=== PATIENT | male | born 1990 | race Caucasian/White ===

== ENCOUNTER 2021-12-21 08:15 | Outpatient (CLI) | payer MEDICARE, MEDICAID | END 2021-12-21 08:16 | disposition home or self-care (01) | LOC: CSHWCC 08:15 | PROVIDERS: ATTEND Nurse Practitioner Family | DX: L89.154 Pressure ulcer of sacral region, stage 4 (principal); L89.153 Pressure ulcer of sacral region, stage 3 | CPT/HCPCS: 97139; G0463; 99213 ==

== ENCOUNTER 2022-08-23 14:37 | Outpatient (CLI) | payer MEDICARE, MEDICAID | END 2022-08-23 14:38 | disposition home or self-care (01) | LOC: CSHWCC 14:37 | PROVIDERS: ATTEND Nurse Practitioner Family | DX: L89.153 Pressure ulcer of sacral region, stage 3 (principal) | CPT/HCPCS: 97139; 97607; G0463; 99212 ==

== ENCOUNTER 2022-10-03 14:59 | Outpatient (CLI) | payer MEDICARE, MEDICAID | END 2022-10-03 15:00 | disposition home or self-care (01) | LOC: CSHWCC 14:59 | PROVIDERS: ATTEND Nurse Practitioner Family | DX: L89.153 Pressure ulcer of sacral region, stage 3 (principal) | CPT/HCPCS: 97607 ==

== ENCOUNTER 2022-10-12 14:53 | Outpatient (CLI) | payer MEDICARE, MEDICAID | END 2022-10-12 14:54 | disposition home or self-care (01) | LOC: CSHWCC 14:53 | PROVIDERS: ATTEND Nurse Practitioner Family | DX: L89.153 Pressure ulcer of sacral region, stage 3 (principal) ==

== ENCOUNTER 2022-11-22 15:06 | Outpatient (CLI) | payer MEDICARE, MEDICAID | END 2022-11-22 15:07 | disposition home or self-care (01) | LOC: CSHWCC 15:06 | PROVIDERS: ATTEND Nurse Practitioner Family | DX: L89.153 Pressure ulcer of sacral region, stage 3 (principal) | CPT/HCPCS: 97139; G0463; 99213 ==

== ENCOUNTER 2022-12-06 10:21 | Outpatient (CLI) | payer MEDICARE, MEDICAID | END 2022-12-06 10:22 | disposition home or self-care (01) | LOC: CSHWCC 10:21 | PROVIDERS: ATTEND Nurse Practitioner Family | DX: L89.153 Pressure ulcer of sacral region, stage 3 (principal) | CPT/HCPCS: 97139; G0463; 99213 ==

== ENCOUNTER 2022-12-07 16:42 | Emergency (ER) | payer MEDICARE, MEDICAID | END 2022-12-07 17:55 | disposition home or self-care (01) | LOC: CSHERS 16:42 | DX: L03.116 Cellulitis of left lower limb (principal); F17.210 Nicotine dependence, cigarettes, uncomplicated | CPT/HCPCS: 99283 ==

== ENCOUNTER 2023-01-22 10:00 | Outpatient (CLI) | payer MEDICARE, MEDICAID | END 2023-01-22 10:01 | disposition home or self-care (01) | LOC: CSHWCC 10:00 | PROVIDERS: ATTEND Nurse Practitioner Family | DX: L89.153 Pressure ulcer of sacral region, stage 3 (principal); T81.89XD Other complications of procedures, not elsewhere classified, subsequent encounter | CPT/HCPCS: 97139; 97597; G0463; 99213 ==

== ENCOUNTER 2023-02-20 15:32 | Outpatient (CLI) | payer MEDICARE, MEDICAID | END 2023-02-20 15:33 | disposition home or self-care (01) | LOC: CSHWCC 15:32 | PROVIDERS: ATTEND Nurse Practitioner Family | DX: L89.153 Pressure ulcer of sacral region, stage 3 (principal) | CPT/HCPCS: 97597 ==